=== PATIENT | male | born 1985 | race African-American/Black ===

== ENCOUNTER 2016-05-30 17:18 | Emergency (ER) | payer SELFPAY ==
[~2016-05-30] VITALS: Ht 185.4 cm; Wt 170.0 kg
[2016-05-30 21:56] VITALS: BP 128/73
== END 2016-05-30 21:57 | disposition home or self-care (01) ==
LOC: EMS 17:19
DX: L73.9 Follicular disorder, unspecified (principal); F12.90 Cannabis use, unspecified, uncomplicated; F16.90 Hallucinogen use, unspecified, uncomplicated; F17.210 Nicotine dependence, cigarettes, uncomplicated
CPT/HCPCS: 99283; 99406

== ENCOUNTER 2017-05-31 16:05 | Emergency (ER) | payer SELFPAY ==
[~2017-05-31] VITALS: Ht 188 cm; Wt 158.2 kg
[2017-05-31 16:27] VITALS: BP 152/94
== END 2017-05-31 17:58 | disposition left against medical advice (07) ==
LOC: EMS 16:07
DX: R10.33 Periumbilical pain (principal); F12.90 Cannabis use, unspecified, uncomplicated; F17.210 Nicotine dependence, cigarettes, uncomplicated; Z53.21 Procedure and treatment not carried out due to patient leaving prior to being seen by health care provider

== ENCOUNTER 2017-06-02 22:25 | Emergency (ER) | payer SELFPAY ==
[~2017-06-02] VITALS: Ht 188 cm; Wt 154.5 kg
[2017-06-03 00:44] LABS: BASOPHILS % (AUTO) 1.2 % (0.0-2.0); EOSINOPHILS % (AUTO) 1.6 % (1.0-6.0); HEMATOCRIT 47.7 % (41-53); HEMOGLOBIN 15.8 g/dL (13.5-17.5); LYMPHOCYTES # (AUTO) 1.6 K/uL (1.0-4.8); LYMPHOCYTES % (AUTO) 28.7 % (22.0-44.0); MEAN CORPUSCULAR HEMOGLOBIN 28.6 pg (26.0-34.0); MEAN CORPUSCULAR VOLUME 86 fL (80-100); MONOCYTES # (AUTO) 0.7 K/uL (0.1-1.0); MONOCYTES % (AUTO) 11.5 % (2.0-9.0); NEUTROPHILS # (AUTO) 3.3 K/uL (1.8-7.7); PLATELET COUNT (AUTO) 210 K/uL (150-450); RED BLOOD CELL COUNT(AUTO) 5.52 MIL/uL (4.50-5.90); RED CELL DISTRIBUTION WIDTH 14.9 % (11.5-14.5)
[2017-06-03 00:48] LABS: ANION GAP 5 mmol/L (8-16); CALCIUM, TOTAL 9.2 mg/dL (8.8-10.5); CARBON DIOXIDE 31 mmol/L (22-29); CHLORIDE 104 mmol/L (98-107); CREATININE 0.86 mg/dL (0.60-1.30); GLOMERULAR FILTR. RATE CALC > 60 mL/min (>60); GLUCOSE,RANDOM 88 mg/dL (70-110); POTASSIUM 4.3 mmol/L (3.5-5.1); SODIUM SERUM 140 mmol/L (136-145); UREA NITROGEN, BLOOD 15 mg/dL (7-18)
[2017-06-03 00:53] LABS: ALANINE AMINOTRANSFERASE 24 U/L (12-78); ALBUMIN 3.8 g/dL (3.4-5.0); ALKALINE PHOSPHATASE 114 U/L (46-116); ASPARTATE AMINOTRANSFERASE 19 U/L (15-37); BILIRUBIN,TOTAL 0.4 mg/dL (0.1-1.0); LIPASE 130 U/L (73-393); TOTAL PROTEIN, SERUM 7.4 g/dL (6.4-8.2)
[2017-06-03 02:04] LABS: APPEARANCE,URINE CLEAR (CLEAR); BILIRUBIN,URINE NEGATIVE (NEGATIVE); GLUCOSE, URINE (UA) NEGATIVE (NEGATIVE); KETONES,URINE NEGATIVE (NEGATIVE); LEUKOCYTE ESTERASE ,URINE NEGATIVE (NEGATIVE); NITRATE,URINE NEGATIVE (NEGATIVE); OCCULT BLOOD,URINE NEGATIVE (NEGATIVE); PH,URINE 6.5 (5.0-8.0); PROTEIN,URINE NEGATIVE (NEGATIVE); UROBILINOGEN,URINE 0.2 mg/dL (<=1.0)
[2017-06-03 02:09] LABS: AMPHET/METH SCREEN,URINE NEGATIVE (NEGATIVE); BARBITURATE SCREEN, URINE NEGATIVE (NEGATIVE); BENZODIAZEPINES SCREEN,URINE NEGATIVE (NEGATIVE); CANNABINOID SCREEN,URINE POSITIVE (NEGATIVE); COCAINE SCREEN,URINE NEGATIVE (NEGATIVE); METHADONE SCREEN, URINE NEGATIVE (NEGATIVE); OPIATE SCREEN,URINE NEGATIVE (NEGATIVE)
[2017-06-03 02:10] LABS: PHENCYCLIDINE SCREEN,URINE POSITIVE (NEGATIVE)
[2017-06-03 03:05] VITALS: BP 138/89
== END 2017-06-03 03:24 | disposition home or self-care (01) ==
LOC: EMS 22:25
DX: F19.10 Other psychoactive substance abuse, uncomplicated (principal); I10 Essential (primary) hypertension; M89.8X8 Other specified disorders of bone, other site; F17.210 Nicotine dependence, cigarettes, uncomplicated; Z71.6 Tobacco abuse counseling
CPT/HCPCS: 99284; 99406

== ENCOUNTER 2018-08-13 20:54 | Emergency (ER) | payer SELFPAY ==
[~2018-08-13] VITALS: Ht 188 cm; Wt 102.3 kg
[2018-08-13 21:19] VITALS: BP 156/108
[2018-08-13 21:25] LABS: GLUCOSE,POINT OF CARE 96 MG/DL (70-110)
== END 2018-08-13 21:48 | disposition home or self-care (01) ==
LOC: EMS 20:56
DX: R41.82 Altered mental status, unspecified (principal); F16.90 Hallucinogen use, unspecified, uncomplicated; F12.90 Cannabis use, unspecified, uncomplicated; F17.210 Nicotine dependence, cigarettes, uncomplicated

== ENCOUNTER 2019-03-15 16:26 | Emergency (ER) | payer MEDICAID ==
[~2019-03-15] VITALS: Ht 188 cm; Wt 136.4 kg
[2019-03-15] MEDS ORDERED: [UNRECOGNIZED DRUG - CODE] MM (16:36)
[2019-03-15 20:27] LABS: INFLUENZA TYPE A NEGATIVE FOR TYPE A (NEGATIVE); INFLUENZA TYPE B NEGATIVE FOR TYPE B (NEGATIVE)
[2019-03-15 21:15] VITALS: BP 130/81
== END 2019-03-15 21:40 | disposition home or self-care (01) ==
LOC: EMS 16:27
DX: J40 Bronchitis, not specified as acute or chronic (principal); F17.210 Nicotine dependence, cigarettes, uncomplicated; F12.90 Cannabis use, unspecified, uncomplicated; F16.90 Hallucinogen use, unspecified, uncomplicated
CPT/HCPCS: 87804

== ENCOUNTER 2019-06-08 18:19 | Emergency (ER) | payer MEDICAID ==
[~2019-06-08] VITALS: Ht 188 cm; Wt 142.2 kg
[~2019-06-08 18:19] MED LIST: [UNRECOGNIZED DRUG - CODE] MM
[2019-06-08 19:56] VITALS: BP 148/88
== END 2019-06-08 19:58 | disposition home or self-care (01) ==
LOC: EMS 18:21
DX: F19.10 Other psychoactive substance abuse, uncomplicated (principal); F17.210 Nicotine dependence, cigarettes, uncomplicated; F12.90 Cannabis use, unspecified, uncomplicated; F11.90 Opioid use, unspecified, uncomplicated; Z02.89 Encounter for other administrative examinations
CPT/HCPCS: 93005

== ENCOUNTER 2021-10-28 14:23 | Emergency (ER) | payer MEDICAID ==
[~2021-10-28] VITALS: Ht 188 cm; Wt 113.6 kg
[2021-10-28] MEDS ORDERED: PERTUSS(ACELL),DIPH,TET VAC/PF 0.5 ML SYRINGE IM. ONE (14:30)
[2021-10-28] MEDS ORDERED: BACITRACIN 0.9 GM PACKET OINTMENT TP ONE (14:30)
[2021-10-28] MEDS ORDERED: ACETAMINOPHEN 500 MG TABLET PO ONE (14:30)
[2021-10-28] MEDS ORDERED: DOXYCYCLINE HYCLATE 100 MG TABLET PO ONE (14:30)
[2021-10-28] MEDS ORDERED: BACITRACIN 28 GM OINTMENT TP ONE (15:00)
[2021-10-28] MEDS ORDERED: DOXY-354 PO (15:53)
[2021-10-28] MEDS ORDERED: POVIDONE-IODINE 10% 15 ML SOLUTION UD TP ONE (16:00)
[2021-10-28] MEDS ORDERED: LIDOCAINE 1% 10 ML VIAL SQ ONE (16:00)
[2021-10-28 17:48] VITALS: BP 148/90
== END 2021-10-28 17:50 | disposition home or self-care (01) ==
LOC: EMS 14:24
DX: S61.236A Puncture wound without foreign body of right little finger without damage to nail, initial encounter (principal); F17.210 Nicotine dependence, cigarettes, uncomplicated; F12.90 Cannabis use, unspecified, uncomplicated; F16.90 Hallucinogen use, unspecified, uncomplicated; Z87.898 Personal history of other specified conditions; W34.00XA Accidental discharge from unspecified firearms or gun, initial encounter; Y93.89 Activity, other specified; Y92.89 Other specified places as the place of occurrence of the external cause; Y99.8 Other external cause status
CPT/HCPCS: 99283; 73140; 90715; 90471; 12001; J3490

== ENCOUNTER 2021-10-31 18:06 | Emergency (ER) | payer MEDICAID ==
[~2021-10-31] VITALS: Ht 188 cm; Wt 113.6 kg
[~2021-10-31 18:06] MED LIST changes: +DOXY-354 PO; -[UNRECOGNIZED DRUG - CODE] MM
[2021-10-31 20:00] VITALS: BP 145/99
[2021-10-31] MEDS ORDERED: LIDOCAINE/PF 1% 5 ML VIAL ID ONE (20:30)
== END 2021-10-31 22:29 | disposition home or self-care (01) ==
LOC: EMS 18:08
DX: S61.236A Puncture wound without foreign body of right little finger without damage to nail, initial encounter (principal); F10.20 Alcohol dependence, uncomplicated; F17.210 Nicotine dependence, cigarettes, uncomplicated; F12.90 Cannabis use, unspecified, uncomplicated; F16.929 Hallucinogen use, unspecified with intoxication, unspecified; W32.0XXA Accidental handgun discharge, initial encounter; Y93.89 Activity, other specified; Y92.89 Other specified places as the place of occurrence of the external cause; Y99.8 Other external cause status; Z48.01 Encounter for change or removal of surgical wound dressing
CPT/HCPCS: 99283; 96372; J0690; J2001